=== PATIENT | female | born 2000 | race Caucasian/White ===

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

== ENCOUNTER 2022-03-30 19:29 | Emergency (ER) | payer BC ==
[~2022-03-30] VITALS: Ht 157.5 cm; Wt 48.5 kg
[~2022-03-30 19:29] MED LIST: CEFD300C41 PO
[2022-03-30 19:31] VITALS: BP 109/78
== END 2022-03-30 21:47 | disposition left against medical advice (07) ==
LOC: M ED 19:29
DX: Z53.21 Procedure and treatment not carried out due to patient leaving prior to being seen by health care provider (principal)

== ENCOUNTER → 2022-04-28 | Outpatient (REF) | payer BC ==
[2022-04-28 16:30] LABS: HEMATOCRIT 39.4 % (36.0-47.0); HEMOGLOBIN 13.2 g/dl (12.0-15.5); MEAN CORPUSCULAR HEMOGLOBIN 29.6 pg (27.0-33.0); MEAN CORPUSCULAR HGB CONC 33.5 g/dl (32.0-36.5); MEAN CORPUSCULAR VOLUME 88.3 fl (80.0-96.0); PLATELET COUNT, AUTOMATED 181 10^3/uL (150-450); RED BLOOD COUNT 4.46 10^6/uL (4.00-5.40); WHITE BLOOD COUNT 9.5 10^3/uL (4.0-10.0)
[2022-04-28 20:27] LABS: HCG, SERUM QUANTITATIVE 67396 MIU/ML; HEPATITIS B SURFACE ANTIGEN NEGATIVE (NEGATIVE); HEPATITIS C VIRUS ABY INDEX < 0.0 INDEX (<0.8); HIV 1&2 SCREEN CENTAUR NEGATIVE (NEGATIVE)
== END ==
LOC: M LAB REF 16:10
PROVIDERS: ATTEND Obstetrics & Gynecology
DX: Z32.01 Encounter for pregnancy test, result positive (principal)

== ENCOUNTER 2022-05-30 23:53 | Emergency (ER) | payer BC ==
[~2022-05-30] VITALS: Ht 157.5 cm; Wt 50.8 kg
[2022-05-30 23:55] VITALS: BP 115/75
== END 2022-05-31 02:40 | disposition left against medical advice (07) ==
LOC: M ED 23:53
DX: Z53.21 Procedure and treatment not carried out due to patient leaving prior to being seen by health care provider (principal)

== ENCOUNTER 2022-09-05 18:30 | Outpatient (CLI) | payer BC ==
[~2022-09-05] VITALS: Ht 157.5 cm; Wt 55.1 kg
[2022-09-05 18:43] VITALS: BP 120/68
[2022-09-05] MEDS ORDERED: ACETAMINOPHEN 500 MG TAB PO ONE (20:00)
[2022-09-05 20:18] LABS: APPEARANCE, URINE MANUAL CLEAR (CLEAR); BILIRUBIN, URINE MANUAL NEGATIVE (NEGATIVE); COLOR, URINE MANUAL YELLOW (YELLOW); GLUCOSE, URINE (UA) MANUAL NEGATIVE (NEGATIVE); KETONE, URINE MANUAL NEGATIVE (NEGATIVE); NITRITE, URINE MANUAL NEGATIVE (NEGATIVE); PROTEIN, URINE MANUAL NEGATIVE (NEGATIVE); UROBILINOGEN, URINE MANUAL NORMAL (NORMAL)
[2022-09-05 20:19] LABS: BLOOD URINE MANUAL NEGATIVE (NEGATIVE); LEUKOCYTE ESTERASE, URINE MAN NEGATIVE (NEGATIVE)
[2022-09-05 21:24] LABS: GC DNA AMPLIFICATION NEGATIVE (NEGATIVE)
[2022-09-08] MEDS ORDERED: MUCI1TAB16 PO (04:45)
[2022-09-08] MEDS ORDERED: ACET325C5 PO (04:45)
== END 2022-09-05 21:30 | disposition home or self-care (01) ==
LOC: M LDO 18:30
PROVIDERS: ATTEND Obstetrics & Gynecology
DX: O26.893 Other specified pregnancy related conditions, third trimester (principal); R10.2 Pelvic and perineal pain; N89.8 Other specified noninflammatory disorders of vagina; Z3A.28 28 weeks gestation of pregnancy

== ENCOUNTER → 2022-09-13 | Outpatient (CLI) | payer BC ==
[~2022-09-13] MED LIST changes: +ACET325C5 PO; +MUCI1TAB16 PO; +OSEL75CA PO
[2022-09-13 13:40] LABS: HEMOGLOBIN 11.2 g/dl (12.0-15.5); MEAN CORPUSCULAR HEMOGLOBIN 29.7 pg (27.0-33.0); MEAN CORPUSCULAR HGB CONC 32.9 g/dl (32.0-36.5); MEAN CORPUSCULAR VOLUME 90.2 fl (80.0-96.0); PLATELET COUNT, AUTOMATED 223 10^3/uL (150-450); RED BLOOD COUNT 3.77 10^6/uL (4.00-5.40); WHITE BLOOD COUNT 10.5 10^3/uL (4.0-10.0)
== END ==
LOC: M PLALAB 10:35
PROVIDERS: ATTEND Obstetrics & Gynecology
DX: Z34.82 Encounter for supervision of other normal pregnancy, second trimester (principal); Z3A.00 Weeks of gestation of pregnancy not specified

== ENCOUNTER → 2022-11-02 | Outpatient (REF) | payer BC, MEDICAID | LOC: M LAB REF 16:27 | PROVIDERS: ATTEND Obstetrics & Gynecology | DX: Z36.85 Encounter for antenatal screening for Streptococcus B (principal) ==

== ENCOUNTER 2022-11-19 09:58 | Outpatient (CLI) | payer BC, MEDICAID ==
[~2022-11-19] VITALS: Ht 157.5 cm; Wt 62.4 kg
[2022-11-19 10:20] VITALS: BP 101/67
[2022-11-19] MEDS ORDERED: HOME MED LIST COMPLETE! XX SCH (10:25)
[2022-11-19] MEDS ORDERED: ONDANSETRON 4MG 2ML VIAL IV ONE (10:55)
[2022-11-19] MEDS ORDERED: LR 1,000 ML IV ONE (10:55)
[2022-11-19 11:29] LABS: APPEARANCE, URINE CLEAR (CLEAR); BILIRUBIN, URINE AUTO NEGATIVE (NEGATIVE); BLOOD, URINE BLOOD NEGATIVE (NEGATIVE); COLOR, URINE YELLOW (YELLOW); GLUCOSE, URINE (UA) AUTO NEGATIVE (NEGATIVE); KETONE, URINE AUTO NEGATIVE (NEGATIVE); LEUKOCYTE ESTERASE, URINE AUTO NEGATIVE (NEGATIVE); NITRITE, URINE AUTO NEGATIVE (NEGATIVE); PROTEIN, URINE AUTO NEGATIVE (NEGATIVE); UROBILINOGEN, URINE AUTO 0.2 mg/dL (0.0-2.0)
[2022-11-19 11:32] LABS: BACTERIA, URINE AUTO NEGATIVE (NEGATIVE); MUCUS, URINE SMALL (NEGATIVE); RBC, URINE AUTO 0 /HPF (0-3); SQUAMOUS EPITHELIAL CELL UR AU 1 /HPF (0-6); WBC, URINE AUTO 2 /HPF (0-3)
[2022-11-19 11:34] LABS: HEMATOCRIT 34.1 % (36.0-47.0); MEAN CORPUSCULAR HEMOGLOBIN 26.4 pg (27.0-33.0); MEAN CORPUSCULAR HGB CONC 32.3 g/dl (32.0-36.5); MEAN CORPUSCULAR VOLUME 81.8 fl (80.0-96.0); PLATELET COUNT, AUTOMATED 264 10^3/uL (150-450); RED BLOOD COUNT 4.17 10^6/uL (4.00-5.40); WHITE BLOOD COUNT 11.7 10^3/uL (4.0-10.0)
== END 2022-11-19 12:30 | disposition home or self-care (01) ==
LOC: M LDO 09:58
PROVIDERS: ATTEND Advanced Practice Midwife
DX: O21.8 Other vomiting complicating pregnancy (principal); O60.03 Preterm labor without delivery, third trimester; Z3A.39 39 weeks gestation of pregnancy
CPT/HCPCS: 59025; 81001; 85027; 96374; G0463

== ENCOUNTER 2022-11-25 17:31 | Inpatient (IN) | payer BC, MEDICAID ==
[2022-11-25] VITALS (21 sets, daily range): BP systolic 106–137; BP diastolic 56–90
[~2022-11-25] VITALS: Ht 157.5 cm; Wt 62.7 kg
[2022-11-25] MEDS ORDERED: HOME MED LIST COMPLETE! XX SCH (17:50)
[2022-11-25] MEDS ORDERED: TRANEXAMIC ACID INJection 1,000 MG in NS 100 ML IV PRN (18:50)
[2022-11-25] MEDS ORDERED: OXYTOCIN DRIP 30 UNITS in IV 1 EA IV PRN ×4 (18:50)
[2022-11-25] MEDS ORDERED: LR 1,000 ML IV SCH (18:50)
[2022-11-25] MEDS ORDERED: METHYLERGONOVINE MALEATE 0.2MG/ML 1ML VIAL IM PRN (18:50)
[2022-11-25] MEDS ORDERED: CARBOPROST TROMETHAMINE 250 MCG/ML AMP IM PRN (18:50)
[2022-11-25] MEDS ORDERED: LACTATED RINGER'S 1000 ML IV PRN (18:50)
[2022-11-25 19:00] LABS: HEMATOCRIT 37.2 % (36.0-47.0); HEMOGLOBIN 12.1 g/dl (12.0-15.5); MEAN CORPUSCULAR HEMOGLOBIN 26.1 pg (27.0-33.0); MEAN CORPUSCULAR HGB CONC 32.5 g/dl (32.0-36.5); MEAN CORPUSCULAR VOLUME 80.3 fl (80.0-96.0); PLATELET COUNT, AUTOMATED 329 10^3/uL (150-450); RED BLOOD COUNT 4.63 10^6/uL (4.00-5.40); WHITE BLOOD COUNT 12.8 10^3/uL (4.0-10.0)
[2022-11-25] MEDS ORDERED: EPIDURAL/PCA KEYS XX PRN ×2 (19:20→19:50)
[2022-11-25] MEDS ORDERED: FENTANYL/ROPIVACAINE/NACL BAG 100 ML EPIDURAL SCH ×2 (19:20→19:50)
[2022-11-25] MEDS ORDERED: ONDANSETRON 4MG 2ML VIAL IV PRN (19:50)
[2022-11-25] MEDS ORDERED: ePHEDrine SULFATE 25 MG/5 ML(5MG/ML) SYRINGE IVP PRN (19:50)
[2022-11-25] MEDS ORDERED: diphenhydrAMINE 50MG/ML VIAL IV PRN (19:50)
[2022-11-25] MEDS ORDERED: LR 500 ML IV PRN (19:50)
[2022-11-25] MEDS ORDERED: NALOXONE INJ 0.4MG/1ML VIAL IV PRN (19:50)
[2022-11-25] MEDS ORDERED: RHOGAM 300MCG (1500IU) INJ IM SCH (22:45)
[2022-11-25] MEDS ORDERED: ACETAMINOPHEN 500 MG TAB PO PRN (22:45)
[2022-11-25] MEDS ORDERED: DIBUCAINE 1% OINTMENT 30GM TOP PRN (22:45)
[2022-11-25] MEDS ORDERED: DOCUSATE SODIUM 100MG CAPSULE PO PRN (22:45)
[2022-11-25] MEDS ORDERED: IBUPROFEN 600MG TAB PO PRN (22:45)
[2022-11-25] MEDS ORDERED: METHYLERGONOVINE MALEATE 0.2 MG TAB PO PRN (22:45)
[2022-11-26 00:32] VITALS: BP 112/57
[2022-11-26 06:14] VITALS: BP 107/55
[2022-11-26 06:40] LABS: HEMATOCRIT 34.6 % (36.0-47.0); HEMOGLOBIN 11.1 g/dl (12.0-15.5); MEAN CORPUSCULAR HEMOGLOBIN 25.9 pg (27.0-33.0); MEAN CORPUSCULAR HGB CONC 32.1 g/dl (32.0-36.5); MEAN CORPUSCULAR VOLUME 80.8 fl (80.0-96.0); PLATELET COUNT, AUTOMATED 251 10^3/uL (150-450); RED BLOOD COUNT 4.28 10^6/uL (4.00-5.40); WHITE BLOOD COUNT 17.4 10^3/uL (4.0-10.0)
[2022-11-26] MEDS: PRENATAL VITAMINS CHEWABLE TABLET PO SCH (07:12)
[2022-11-26] MEDS: ACETAMINOPHEN 325MG/10.15ML UDC PO PRN ×2 (08:34→20:26)
[2022-11-26 18:00] VITALS: BP 137/90
[2022-11-27 06:00] VITALS: BP 132/85
[2022-11-27] MEDS ORDERED: MEASLES,MUMPS,RUBELLA VACCINE INJ (MMR-II) SC.IMMUN ONE (09:00)
[2022-11-27] MEDS: PRENATAL VITAMINS CHEWABLE TABLET PO SCH (09:12)
== END 2022-11-27 15:45 | disposition home or self-care (01) | DRG 560 ==
LOC: M LDO 17:31 → M LDI 18:27 → M OBS 11-26 00:20
PROVIDERS: ADMIT Obstetrics & Gynecology; ATTEND Obstetrics & Gynecology
PROC: 10E0XZZ Delivery of Products of Conception, External Approach (ICD-10-PCS; principal; 2022-11-25)
PROC: 10907ZC Drainage of Amniotic Fluid, Therapeutic from Products of Conception, Via Natural or Artificial Opening (ICD-10-PCS; 2022-11-25)
DX: O48.0 Post-term pregnancy (principal); O32.6XX0 Maternal care for compound presentation, not applicable or unspecified; Z37.0 Single live birth; Z3A.40 40 weeks gestation of pregnancy; Z88.0 Allergy status to penicillin; O66.0 Obstructed labor due to shoulder dystocia

== ENCOUNTER 2022-11-30 20:38 | Emergency (ER) | payer BC, MEDICAID ==
[~2022-11-30] VITALS: Ht 157.5 cm; Wt 65.0 kg
[2022-11-30 21:11] LABS: BASO % 0.4 % (0.0-1.0); EOS # 0.2 10^3/uL (0.0-0.5); HEMATOCRIT 42.9 % (36.0-47.0); HEMOGLOBIN 13.4 g/dl (12.0-15.5); LYMPH # 2.2 10^3/uL (1.5-5.0); LYMPH % 19.9 % (24.0-44.0); MEAN CORPUSCULAR HEMOGLOBIN 25.6 pg (27.0-33.0); MEAN CORPUSCULAR HGB CONC 31.2 g/dl (32.0-36.5); MEAN CORPUSCULAR VOLUME 81.9 fl (80.0-96.0); MONO # 0.5 10^3/uL (0.0-0.8); MONO % 4.2 % (2.0-8.0); NEUTROPHILS # 8.2 10^3/uL (1.5-8.5); NEUTROPHILS % 73.2 % (36.0-66.0); PLATELET COUNT, AUTOMATED 379 10^3/uL (150-450); RED BLOOD COUNT 5.24 10^6/uL (4.00-5.40); WHITE BLOOD COUNT 11.1 10^3/uL (4.0-10.0)
[2022-11-30 21:53] LABS: BLOOD UREA NITROGEN 13 MG/DL (9-23); CALCIUM LEVEL 9.1 MG/DL (8.5-10.1); CARBON DIOXIDE LEVEL 28 MMOL/L (20-31); CHLORIDE LEVEL 104 MMOL/L (98-107); CREATININE FOR GFR 0.73 MG/DL (0.55-1.30); GLOMERULAR FILTRATION RATE > 60.0 (>60); GLUCOSE, FASTING 89 MG/DL (60-100); POTASSIUM SERUM 3.9 MMOL/L (3.5-5.1); SODIUM LEVEL 139 MMOL/L (136-145)
[2022-11-30 21:59] VITALS: BP 117/75
== END 2022-12-01 01:00 | disposition home or self-care (01) ==
LOC: M ED 20:38
DX: O72.2 Delayed and secondary postpartum hemorrhage (principal); Z88.1 Allergy status to other antibiotic agents

== ENCOUNTER 2022-12-06 14:15 | Emergency (ER) | payer BC ==
[~2022-12-06] VITALS: Ht 157.5 cm; Wt 56.8 kg
[2022-12-06] MEDS ORDERED: MULTTAB20 PO (14:33)
[2022-12-06] MEDS ORDERED: MORPHINE 2 MG/ML 1ML VIAL IV ONE (15:00)
[2022-12-06] MEDS ORDERED: ONDANSETRON 4MG 2ML VIAL IV ONE (15:00)
[2022-12-06 15:13] LABS: BASO # 0.1 10^3/uL (0.0-0.2); BASO % 0.6 % (0.0-1.0); EOS # 0.1 10^3/uL (0.0-0.5); EOS % 1.5 % (0.0-3.0); HEMATOCRIT 43.6 % (36.0-47.0); HEMOGLOBIN 13.8 g/dl (12.0-15.5); LYMPH # 2.6 10^3/uL (1.5-5.0); LYMPH % 29.8 % (24.0-44.0); MEAN CORPUSCULAR HEMOGLOBIN 25.6 pg (27.0-33.0); MEAN CORPUSCULAR HGB CONC 31.7 g/dl (32.0-36.5); MEAN CORPUSCULAR VOLUME 80.9 fl (80.0-96.0); MONO # 0.5 10^3/uL (0.0-0.8); MONO % 5.5 % (2.0-8.0); NEUTROPHILS # 5.5 10^3/uL (1.5-8.5); NEUTROPHILS % 62.1 % (36.0-66.0); PLATELET COUNT, AUTOMATED 316 10^3/uL (150-450); RED BLOOD COUNT 5.39 10^6/uL (4.00-5.40); WHITE BLOOD COUNT 8.8 10^3/uL (4.0-10.0)
[2022-12-06 15:20] LABS: BLOOD UREA NITROGEN 15 MG/DL (9-23); CALCIUM LEVEL 9.3 MG/DL (8.5-10.1); CARBON DIOXIDE LEVEL 26 MMOL/L (20-31); CHLORIDE LEVEL 104 MMOL/L (98-107); CREATININE FOR GFR 0.89 MG/DL (0.55-1.30); GLOMERULAR FILTRATION RATE > 60.0 (>60); GLUCOSE, FASTING 81 MG/DL (60-100); SODIUM LEVEL 140 MMOL/L (136-145)
[2022-12-06] MEDS ORDERED: KETOROLAC 30 MG/ML 1ML VIAL IV ONE (15:45)
[2022-12-06 16:24] LABS: RSV AMPLIFICATION NEGATIVE (NEGATIVE)
[2022-12-06 17:15] VITALS: BP 116/73
[2022-12-06] MEDS ORDERED: PROHANCE 279.3MG/ML 5ML VIAL As Ordered ONE (18:14)
[2022-12-06] MEDS ORDERED: HYDR-4571 PO (21:17)
== END 2022-12-06 22:01 | disposition home or self-care (01) ==
LOC: EDBD 14:15 → M ED 14:15
DX: M51.87 Other intervertebral disc disorders, lumbosacral region (principal); M51.26 Other intervertebral disc displacement, lumbar region; F41.9 Anxiety disorder, unspecified; F32.A Depression, unspecified; Z88.1 Allergy status to other antibiotic agents; Z79.810 Long term (current) use of selective estrogen receptor modulators (SERMs); Z79.899 Other long term (current) drug therapy
CPT/HCPCS: 72158; 80048; 85025; 86140; 87040; 87631; 93041; 94760; 96374; 99285; A9576; J1885; J2405